=== PATIENT | female | born 1990 | race Caucasian/White ===

== ENCOUNTER 2021-05-18 12:12 | Day surgery (SDC) | payer MEDICAID ==
[~2021-05-18] VITALS: Ht 162.6 cm; Wt 77.3 kg
[2021-05-18] MEDS ORDERED: LIDOcaine Viscous 15ml cup ONE (12:18)
[2021-05-18] MEDS ORDERED: MIDAZolam 1 MG/ML 5ML VIAL ONE (12:18)
[2021-05-18] MEDS ORDERED: fentaNYL/PF 50MCG/1 ML 2ML syringe ONE (12:18)
[2021-05-18 12:25] VITALS: BP 111/63
[2021-05-18] MEDS ORDERED: NO HOME MEDS (12:26)
[2021-05-18 13:46] VITALS: BP 109/44
[2021-05-18 13:56] VITALS: BP 109/62
[2021-05-18 14:06] VITALS: BP 103/59
[2021-05-18 14:16] VITALS: BP 108/66
== END 2021-05-18 14:20 | disposition home or self-care (01) ==
LOC: GI LAB 12:12
PROVIDERS: ATTEND Internal Medicine Gastroenterology
DX: R10.13 Epigastric pain (principal); K29.50 Unspecified chronic gastritis without bleeding; K20.80 Other esophagitis without bleeding; F12.90 Cannabis use, unspecified, uncomplicated; F17.290 Nicotine dependence, other tobacco product, uncomplicated
CPT/HCPCS: 43239; 99152; J2250; J3010; J7040; Z7512; A4620